=== PATIENT | male | born 1945 | race Caucasian/White ===

== ENCOUNTER 2023-04-20 12:54 | Inpatient (IN) | payer MEDICARE, OTHER ==
[~2023-04-20] VITALS: Ht 167.6 cm; Wt 64.0 kg
[2023-04-20] MEDS ORDERED: ACETAMINOPHEN ES 500 MG TABLET ONE (13:24)
[2023-04-20] MEDS ORDERED: ACETAMINOPHEN ES 500 MG TABLET PO ONE (13:30)
[2023-04-20 14:08] LABS: INR 1.2 (0.91-1.10); PROTHROMBIN TIME 12.5 SECS (9.2-11.1)
[2023-04-20 14:24] LABS: BASOPHILS % (AUTO) 0.6 % (0.0-2.0); EOSINOPHILS % (AUTO) 0.2 % (0.0-6.0); HEMATOCRIT 32 % (39-51); HEMOGLOBIN 10.3 g/dL (13.5-17.5); LYMPHOCYTES # (AUTO) 0.4 K/uL (0.8-4.8); LYMPHOCYTES % (AUTO) 7.8 % (20.0-44.0); MEAN CORPUSCULAR HEMOGLOBIN 32 PG (26.0-33.0); MEAN CORPUSCULAR HGB CONC 32 g/dl (31.0-36.0); MEAN CORPUSCULAR VOLUME 98 fL (80-96); MONOCYTES # (AUTO) 0.6 K/uL (0.1-1.30); MONOCYTES % (AUTO) 11.2 % (2.0-12.0); NEUTROPHILS % (AUTO) 80.2 % (43.0-81.0); PLATELET COUNT (AUTO) 139 K/uL (150-450); RED BLOOD CELL COUNT(AUTO) 3.26 MIL/uL (4.5-6.0); RED CELL DISTRIBUTION WIDTH 13.9 % (11.5-15.0); WHITE BLOOD COUNT (AUTO) 4.9 K/uL (4.3-11.0)
[2023-04-20] MEDS ORDERED: CEFEPIME 1 GM in IV D5W 50 ML IV ONE (14:30)
[2023-04-20] MEDS ORDERED: VANCOMYCIN 1 GM in IV D5W 250 ML IV ONE (14:30)
[2023-04-20 14:37] LABS: ALANINE AMINOTRANSFERASE 18 U/L (12-78); ALBUMIN 3.7 g/dL (3.4-5.0); ALKALINE PHOSPHATASE 138 U/L (46-116); ASPARTATE AMINOTRANSFERASE 12 U/L (15-37); BILIRUBIN,DIRECT 0.3 mg/dL (0.0-0.2); BILIRUBIN,TOTAL 0.8 mg/dL (0.2-1.0); CALCIUM, SERUM 9.4 mg/dL (8.5-10.1); CARBON DIOXIDE 28 mmol/L (21-32); CHLORIDE 99 mmol/L (98-107); CREATININE 5.6 mg/dL (0.6-1.3); GLUCOSE 112 mg/dL (74-106); SODIUM SERUM 137 mmol/L (136-145); UREA NITROGEN, BLOOD 26 mg/dL (7-18)
[2023-04-20 14:46] LABS: LACTIC ACID 1.2 mmol/L (0.4-2.0)
[2023-04-20] MEDS ORDERED: ALBUTEROL FS 2.5 MG/0.5 ML VIAL.NEB NEB PRN ×2 (16:30→17:14)
[2023-04-20] MEDS ORDERED: MORPHINE SULFATE INJ 2 MG/ML DISP.SYRIN IV PRN (16:30)
[2023-04-20] MEDS ORDERED: Z GUARD REMEDY 4 OZ OINT TP PRN (16:30)
[2023-04-20] MEDS ORDERED: ACETAMINOPHEN 325 MG TABLET PO PRN (16:30)
[2023-04-20] MEDS ORDERED: ONDANSETRON HCL/PF 4 MG/2 ML VIAL IVP PRN (16:30)
[2023-04-20] MEDS ORDERED: HYDR-4077 PO (16:41)
[2023-04-20] MEDS ORDERED: COLC0.6C3 PO (16:41)
[2023-04-20] MEDS ORDERED: ASPI-1169 PO (16:41)
[2023-04-20] MEDS ORDERED: LIDO30AD10 TP (16:41)
[2023-04-20] MEDS ORDERED: NEBI20TA2 PO (16:41)
[2023-04-20] MEDS ORDERED: NIFE-57 PO (16:41)
[2023-04-20] MEDS ORDERED: NATE120T6 PO (16:41)
[2023-04-20] MEDS ORDERED: LEVO25TA9 PO (16:41)
[2023-04-20] MEDS ORDERED: CLOP75TA15 PO (16:41)
[2023-04-20] MEDS ORDERED: TRAM50TA2 PO (16:41)
[2023-04-20] MEDS ORDERED: DULA1.5P SQ (16:41)
[2023-04-20] MEDS ORDERED: GABA-532 PO (16:41)
[2023-04-20] MEDS ORDERED: DEXL60CA3 PO (16:41)
[2023-04-20] MEDS ORDERED: ACET-2605 PO (16:41)
[2023-04-20] MEDS ORDERED: HYDR28.32 TP (16:41)
[2023-04-20] MEDS ORDERED: DIPH25TA23 PO (16:41)
[2023-04-20 17:39] VITALS: BP 133/71; TEMP 98.3; O2SAT 96
[2023-04-20] MEDS ORDERED: ALBUTEROL SULFATE 8 GM HFA.AER.AD IH PRN (18:30)
[2023-04-20] MEDS: IPRATROPIUM/ALBUTEROL INHALER IH SCH (19:30)
[2023-04-20] MEDS ORDERED: HEPARIN SODIUM, PORCINE 5000 UNITS/1 ML VIAL SQ SCH (21:00)
[2023-04-20 22:51] VITALS: BP 215/105; TEMP 98; O2SAT 96
[2023-04-20] MEDS ORDERED: HYDROCORTISONE 1% CREAM 28.35 GM TUBE TP PRN (23:00)
[2023-04-20] MEDS ORDERED: TRAMADOL HCL 50 MG TABLET PO PRN (23:00)
[2023-04-20] MEDS ORDERED: ASPIRIN 81 MG TAB.CHEW PO SCH (23:00)
[2023-04-20] MEDS ORDERED: hydrALAZINE HCL 50 MG TABLET PO SCH (23:00)
[2023-04-20] MEDS ORDERED: LIDOCAINE 5% (PATCH) 1 EA PATCH TP PRN (23:00)
[2023-04-21] MEDS ORDERED: CLONIDINE HCL 0.1 MG TABLET PO SCH
[2023-04-21] MEDS ORDERED: DEXTROSE 50%-WATER 50 ML DISP.SYRIN IV PRN
[2023-04-21] MEDS ORDERED: BLOOD SUGAR DIAGNOSTIC 1 EACH STRIP IN SCH
[2023-04-21] MEDS ORDERED: INSULIN REGULAR, HUMAN 100 UNIT/ML 3 ML VIAL SQ PRN
[2023-04-21] MEDS ORDERED: NIFEdipine (10MG) 10 MG CAPSULE PO SCH
[2023-04-21] MEDS ORDERED: NIFEdipine XL (30MG) 30 MG TAB PO ONE ×2 (00:13→00:30)
[2023-04-21 01:00] VITALS: BP 185/100; TEMP 97.2; O2SAT 96
[2023-04-21] MEDS: IPRATROPIUM/ALBUTEROL INHALER IH SCH (01:30)
[2023-04-21 05:17] VITALS: BP 147/83; TEMP 98.2; O2SAT 96
[2023-04-21] MEDS ORDERED: LEVOTHYROXINE SODIUM 25 MCG TABLET PO SCH (07:30)
[2023-04-21] MEDS ORDERED: COLCHICINE 0.6 MG TABLET PO SCH (09:00)
[2023-04-21] MEDS ORDERED: CLOPIDOGREL BISULFATE 75 MG TABLET PO SCH (09:00)
[2023-04-21] MEDS ORDERED: GABAPENTIN 100 MG CAPSULE PO SCH (09:00)
[2023-04-21] MEDS ORDERED: NATEGLINIDE 60 MG TABLET PO SCH (09:00)
[2023-04-21] MEDS ORDERED: CEFEPIME 1 GM in IV D5W 50 ML IV SCH (14:00)
[2023-04-21] MEDS ORDERED: VANCOMYCIN 500 MG in IV D5W 100 ML IV PRN (15:00)
== END 2023-04-21 08:17 | disposition left against medical advice (07) | DRG 871 ==
LOC: ER 13:06 → MEDSG1 16:07 → TELE1 16:52
PROVIDERS: ADMIT Internal Medicine; ATTEND Internal Medicine
DX: A41.89 Other specified sepsis (principal); J12.82 Pneumonia due to coronavirus disease 2019; U07.1 COVID-19; J15.6 Pneumonia due to other Gram-negative bacteria; N18.6 End stage renal disease; I12.0 Hypertensive chronic kidney disease with stage 5 chronic kidney disease or end stage renal disease; D63.8 Anemia in other chronic diseases classified elsewhere; D69.6 Thrombocytopenia, unspecified; Z99.2 Dependence on renal dialysis; Z87.01 Personal history of pneumonia (recurrent); I25.10 Atherosclerotic heart disease of native coronary artery without angina pectoris; R53.1 Weakness
CPT/HCPCS: 36415; 71045-TC; 80048-TC; 80076-TC; 82962-TC; 83605-TC; 84484-TC; 85025-TC; 85730-TC; 87040-TC; 87086-TC; G0378; J0692; J1815; J3370; J7060